=== PATIENT | female | born 1995 | race Asian ===

== ENCOUNTER 2018-11-17 05:03 | Emergency (ER) | payer BC ==
[2018-11-17] MEDS ORDERED: MAG HYDROX/AL HYDROX/SIMETH 30 ML UNIT-DOSE CUP PO ONE (05:44)
[2018-11-17] MEDS ORDERED: RANITIDINE HCL 150 MG TABLET (FP) PO ONE (05:44)
[2018-11-17] MEDS ORDERED: ONDANSETRON *ODT* 4 MG TABLET SL ONE (05:44)
--- NOTE | 2018-11-17 05:44 | PDOC ---
History of Present Illness - General Chief Complaint: Pain Stated Complaint: ABD PAIN Time Seen by Provider: 11/17/18 05:37 History Source: Patient - History of Present Illness Initial Comments: 11/17/18 05:50 23-year-old female complaining of epigastric pain/left upper quadrant pain on and off for the past week. Patient reports that since 10 PM she's been having consistent pain to the left upper quadrant and epigastric area. Patient vomited 2 times prior to arrival. denies fever/ chills, urinary symptoms, flank pain. LMP: 10/31/2018 11/17/18 07:01 Past History - Past Medical History Allergies/Adverse Reactions: Allergies Allergy/AdvReac Type Severity Reaction Status Date / Time No Known Drug Allergies Allergy Verified 11/17/18 06:08 Home Medications: Ambulatory Orders Unobtainable 11/17/18 Review of Systems - Review of Systems Able to Perform ROS?: Yes Is the patient limited [place] proficient: No Constitutional: No: Symptoms Reported, See HPI, Chills, Diaphoresis, Fever, Loss of Appetite, Malaise, Night Sweats, Weakness, Weight Stable, Unintentional Wgt. Loss, Unexplained wgt Loss, Other ABD/GI: Yes: Nausea, Vomiting, Abdominal cramping ( epigastric/left upper quadrant pain) *Physical Exam - Vital Signs 11/17/18 07:01 Last Vital Signs Temp Pulse Resp BP Pulse Ox 98.2 F 64 16 107/60 100 11/17/18 06:01 11/17/18 06:01 11/17/18 06:01 11/17/18 06:01 11/17/18 06:01 - Physical Exam General Appearance: Yes: Appropriately Dressed Respiratory/Chest: positive: Lungs Clear, Normal Breath Sounds Cardiovascular: positive: Regular Rhythm, Regular Rate Gastrointestinal/Abdominal: positive: Normal Bowel Sounds, Tender (left upper quadrant/epigastric) Musculoskeletal: negative: CVA Tenderness (R), CVA Tenderness (L) Extremity: positive: Normal Capillary Refill, Normal Inspection, Normal Range of Motion Integumentary: positive: Normal Color, Dry, Warm Neurologic: positive: Fully Oriented, Alert, Normal Mood/Affect ED Treatment Course - LABORATORY CBC & Chemistry Diagram: 11/17/18 06:55 11/17/18 06:55 Progress Note - Progress Note Progress Note: A: abdominal pain P: ua urine Gi cocktail *DC/Admit/Observation/Transfer Diagnosis at time of Disposition: Abdominal pain Qualifiers: Abdominal location: upper abdomen, unspecified Qualified Code(s): R10.10 - Upper abdominal pain, unspecified - Discharge Dispostion Condition at time of disposition: Fair - Referrals Referrals: Nayana Narayan MD [Primary Care Provider] - - Patient Instructions - Post Discharge Activity
--- NOTE | 2018-11-17 05:56 | PDOC ---
Medical Decision Making - Medical Decision Making 11/17/18 05:56 Patient seen by the advanced practice provider under my direct supervision. Ancillary testing reviewed as necessary. I agree with plan as outlined by the advanced practice provider. *DC/Admit/Observation/Transfer Diagnosis at time of Disposition: Abdominal pain - Discharge Dispostion Condition at time of disposition: Fair - Referrals Referrals: Nayana Narayan MD [Primary Care Provider] - - Patient Instructions - Post Discharge Activity
[2018-11-17 06:05] VITALS: TEMP 98.2; BMI 22.3
[2018-11-17] MEDS ORDERED: MAG HYDROX/AL HYDROX/SIMETH 30 ML UNIT-DOSE CUP ONE (06:11)
[2018-11-17] MEDS ORDERED: ONDANSETRON *ODT* 4 MG TABLET ONE (06:11)
[2018-11-17] MEDS ORDERED: RANITIDINE HCL 150 MG TABLET (FP) ONE (06:11)
[2018-11-17 06:39] LABS: HCG,QUALITATIVE URINE Negative
[2018-11-17] MEDS ORDERED: PANTOPRAZOLE SODIUM 40 MG VIAL IVPB ONE (06:52)
[2018-11-17] MEDS ORDERED: PANTOPRAZOLE SODIUM 40 MG/100 ML BAG IVPB ONE (06:58)
[2018-11-17 07:19] LABS: BASO % 0.5 % (0-2.0); EOS % 3.4 % (0-4.5); HEMATOCRIT 34.8 % (32.4-45.2); HEMOGLOBIN 11.3 GM/dL (10.7-15.3); LYMPH % 23.5 % (8-40); MCH 24.7 pg (25.7-33.7); MCHC 32.3 g/dl (32.0-36.0); MEAN CELL VOLUME 76.4 fl (80-96); MEAN PLT VOLUME 10.6 fl (7.5-11.1); MONO % 7.2 % (3.8-10.2); NEUT % 65.4 % (42.8-82.8); PLATELET COUNT 177 K/MM3 (134-434); RBC 4.56 M/mm3 (3.60-5.2); RDW 16.2 % (11.6-15.6); WHITE BLOOD COUNT 7.1 K/mm3 (4.0-10.0)
[2018-11-17 07:32] LABS: ALBUMIN 3.4 g/dl (3.4-5.0); BILIRUBIN,TOTAL 0.2 mg/dL (0.2-1); BLOOD UREA NITROGEN 9.8 mg/dL (7-18); CALCIUM 8.8 mg/dL (8.5-10.1); CREATININE 0.7 mg/dL (0.55-1.3); POTASSIUM 3.9 mmol/L (3.5-5.1); TOT PROT 7.2 g/dl (6.4-8.2)
[2018-11-17 07:44] LABS: EPI CELLS 8.4 /HPF (0-5/HPF); HYALINE CASTS 5 /lpf (0-8); URINE APPEARANCE CLEAR; URINE BACTERIA 891.4 /hpf (NEGATIVE); URINE BILIRUBIN NEGATIVE (NEGATIVE); URINE COLOR ORANGE; URINE GLUCOSE (UA) NEGATIVE (NEGATIVE); URINE KETONE NEGATIVE (NEGATIVE); URINE LEUK ESTERASE 2+ (NEGATIVE); URINE NITRITE NEGATIVE (NEGATIVE); URINE PROTEIN NEGATIVE (NEGATIVE); URINE RBC 0 /hpf (0-4); URINE UROBILINOGEN 0.2 mg/dL (0.2-1.0); URINE WBC 10 /hpf (0-5)
[2018-11-17] MEDS ORDERED: ACETAMINOPHEN 1000 MG/100 ML VIAL (NON FORMULARY) IVPB ONE (08:44)
[2018-11-17] MEDS ORDERED: FAMOTIDINE 20 MG/50 ML IVPB 20 MG/50 ML MG IVPB ONE ×2 (08:44→08:58)
[2018-11-17] MEDS ORDERED: SUCRALFATE 1 GM TABLET (FP) PO ONE (08:45)
[2018-11-17] MEDS ORDERED: SUCRALFATE 1 GM TABLET (FP) ONE (08:57)
[2018-11-17] MEDS ORDERED: ACETAMINOPHEN INJECTION 100 ML IVPB ONE (08:58)
--- NOTE | 2018-11-17 09:51 | PDOC ---
*Physical Exam - Vital Signs Last Vital Signs Temp Pulse Resp BP Pulse Ox 98.2 F 64 16 107/60 100 11/17/18 06:01 11/17/18 06:01 11/17/18 06:01 11/17/18 06:01 11/17/18 06:01 - Physical Exam General Appearance: Yes: Appropriately Dressed. No: Apparent Distress HEENT: positive: Normal Voice Neck: positive: Supple Respiratory/Chest: negative: Respiratory Distress Gastrointestinal/Abdominal: positive: Normal Bowel Sounds, Soft. negative: Tender, Distended, Guarding, Rebound Musculoskeletal: negative: CVA Tenderness Integumentary: positive: Dry, Warm Neurologic: positive: Fully Oriented, Alert, Normal Mood/Affect ED Treatment Course - LABORATORY CBC & Chemistry Diagram: 11/17/18 06:55 11/17/18 06:55 - ADDITIONAL ORDERS Additional order review: Laboratory Results 11/17/18 11/17/18 06:55 05:56 Sodium 138 Potassium 3.9 Chloride 105 Carbon Dioxide 25 Anion Gap 8 BUN 9.8 Creatinine 0.7 Est GFR (CKD-EPI)AfAm 141.54 Est GFR (CKD-EPI)NonAf 122.12 Random Glucose 87 Calcium 8.8 Total Bilirubin 0.2 AST 15 ALT 21 Alkaline Phosphatase 42 L Total Protein 7.2 Albumin 3.4 Lipase 400 H Urine Color Colo Urine Appearance Clear Urine pH 7.0 Ur Specific [place] 1.018 Urine Protein Negative Urine Glucose (UA) Negative Urine Ketones Negative Urine Blood Negative Urine Nitrite Negative Urine Bilirubin Negative Urine Urobilinogen 0.2 Ur Leukocyte Esterase 2+ H Urine WBC (Auto) 10 Urine RBC (Auto) 0 Urine Casts (Auto) 5 U Epithel Cells (Auto) 8.4 Urine Bacteria (Auto) 891.4 Urine HCG, Qual Negative 11/17/18 06:55 RBC 4.56 MCV 76.4 L MCHC 32.3 RDW 16.2 H MPV 10.6 Neutrophils % 65.4 Lymphocytes % 23.5 Monocytes % 7.2 Eosinophils % 3.4 Basophils % 0.5 - Medications Given in the ED: ED Medications Discontinued Medications Generic Name Dose Route Start Last Admin Trade Name Freq PRN Reason Stop Dose Admin Acetaminophen 1,000 mg 11/17/18 08:44 11/17/18 09:07 Ofirmev Injection - IVPB 11/17/18 08:45 1,000 mg ONCE ONE Administration Al Hydroxide/Mg Hydroxide 30 ml 11/17/18 05:44 11/17/18 06:14 Mylanta Oral Suspension - PO 11/17/18 05:45 30 ml ONCE ONE Administration Famotidine/Sodium Chloride 20 mg in 50 mls @ 100 mls/hr 11/17/18 08:44 09:08 Pepcid 20 Mg Premixed Ivpb - IVPB 11/17/18 09:13 100 mls/hr ONCE ONE Administration Ondansetron HCl 4 mg 11/17/18 05:44 11/17/18 06:14 Zofran Odt - SL 11/17/18 05:45 4 mg ONCE ONE Administration Pantoprazole Sodium 40 mg 11/17/18 06:52 11/17/18 07:02 Protonix Iv IVPB 11/17/18 06:53 40 mg ONCE ONE Administration Ranitidine HCl 300 mg 11/17/18 05:44 11/17/18 06:14 Zantac - PO 11/17/18 05:45 300 mg ONCE ONE Administration Sucralfate 1 gm 11/17/18 08:45 11/17/18 09:08 Carafate - PO 11/17/18 08:46 1 gm ONCE ONE Administration Medical Decision Making - Medical Decision Making 11/17/18 07:51 Pt signed out to me at 7 AM 23-year-old healthy female with worsening epigastric pain with nausea x one week. Pain seems to be worse at night and sometimes resolves by the time she awakes in the a.m. No a/w food and denies excessive belching, change in bowel movements, melena, bright red blood per rectum, fever or chills. No frequent NSAID use and does not drink alcohol per pt. may have had similar pain in the past but not severe. Per prior team, pt was given GI cocktail, but continued to complain of pain so labs and ultrasound are pending 11/17/18 09:53 S/p Pepcid and Carafate, patient reports significant improvement with meds and able to ritchie po now. Of note, labs and ultrasound unremarkable. UA w/ 2+ LE, 10 wbc and > 800 carley, pt reports no dysuria so will hold off on abx and send ucx. Will discharge with pain control and GI follow-up. *DC/Admit/Observation/Transfer Diagnosis at time of Disposition: Abdominal pain Qualifiers: Abdominal location: upper abdomen, unspecified Qualified Code(s): R10.10 - Upper abdominal pain, unspecified - Discharge Dispostion Disposition: HOME Condition at time of disposition: Improved - Prescriptions Prescriptions: Famotidine [Pepcid] 20 mg PO BID #28 tablet Mag Hydrox/Al Hydrox/Simeth [Mylanta Suspension -] 30 ml PO Q6H #1 bottle Ondansetron HCl [Zofran] 4 mg PO Q8H #12 tablet - Referrals Referrals: Nayana Narayan MD [Primary Care Provider] - - Patient Instructions Printed Discharge Instructions: DI for Epigastric Pain Additional Instructions: The cause of your pain is unclear at this time but may be due to gastritis/ GERD. Take Pepcid and Maalox as prescribed. You should also take Zofran as needed for nausea. Please follow-up with Dr. Garza of GI in 1 week for possible endoscopy as discussed in ER today - Post Discharge Activity
[2018-11-17 10:06] VITALS: BP 99/52; PULSE 74
== END 2018-11-17 10:06 | disposition home or self-care (01) ==
LOC: JER 05:03
PROC: 3E033NZ Introduction of Analgesics, Hypnotics, Sedatives into Peripheral Vein, Percutaneous Approach (ICD-10-PCS; principal; 2018-11-17)
DX: R10.10 Upper abdominal pain, unspecified (principal)
CPT/HCPCS: 36415; 76705-TC; 80053; 81003; 83690; 84703; 85025; 99282-25; J0131; Q0162